=== PATIENT | female | born 1975 | race Caucasian/White ===

== ENCOUNTER 2017-11-16 12:47 | Emergency (ER) ==
[2017-11-16 13:01] VITALS: BP 120/77; TEMP 96.7; BMI 25.5
== END 2017-11-16 13:19 | disposition left against medical advice (07) ==
LOC: ED 12:47
DX: R51 Headache (principal); Z53.21 Procedure and treatment not carried out due to patient leaving prior to being seen by health care provider
CPT/HCPCS: 99281